=== PATIENT | female | born 1985 | race Caucasian/White ===

== ENCOUNTER 2024-09-25 05:06 | Emergency (ER) | payer OTHER, SELFPAY ==
--- OUTSIDE RECORDS SUMMARY | 2024-08-30 12:13 | XMS_ITS | Continuity of Care Document ---
Author Organization [facility] Address [address] [place] [id number] Phone Care Team Providers Care Patternator Name Role Phone Sanya WHCNCrista WHLinda PITTMANan Unavailable Unavaila ble Allergies, Adverse Reactions, Alerts Substance Reaction Status Criticality No Known Allergies Active No Inform ation Medications Medication Instructions Dosage Effective Dates (start - stop) Status Comments Depo-Provera 150 mg/mL intramuscular syringe inject 1 milliliter (150MG) by intramuscular route every 3 months 150 MG - Active iron 325 mg (65 mg iron) tablet take 1 tablet by oral route every day 325 MG - Active Problems Condition Type Effective Dates (start - stop) Clini rahul Status Comments No Known Problems Procedures Procedure Date Bitewig-single Film Intraoral-periapical 1st Film Oral Hygiene Instruction Limited Oral Eval PREV VISIT, EST, AGE 18-39 OFFICE/OUTPATIENT VISIT, EST OFFICE/OUTPATIENT VISIT, EST Depo Provera 1 Ml Condoms OFFICE/OUTPATIENT VISIT, EST OFFICE/OUTPATIENT VISIT, EST Depo Provera 1 Ml URINE TEST OFFICE/OUTPATIENT VISIT, EST OFFICE/OUTPATIENT VISIT, EST Depo Provera 1 Ml URINE TEST Condoms HIV-1 OFFICE/OUTPATIENT VISIT, EST PREV VISIT, EST, AGE 18-39 PREV VISIT, EST, AGE 18-39 Thin Prep(R) Imaging System Pap W/Reflex To HR HPV DNA ODH SPECIMEN HANDLING (GC/CHLAMYDIA) Sep URINE TEST Depo Provera 1 Ml URINE TEST OFFICE/OUTPATIENT VISIT, EST OFFICE/OUTPATIENT VISIT, EST URINE TEST Depo Provera 1 Ml NEW FP MEDICAID ODH SPECIMEN HANDLING (GC/CHLAMYDIA) Mar URINE TEST NEW OFFICE VISIT LEVEL 2 NEW OFFICE VISIT LEVEL 2 Permethrin 5% OFFICE/OUTPATIENT VISIT, NEW ROUTINE VENIPUNCTURE COUNSELING AND EDUCATION CARE COORDINATION OFFICE/OUTPATIENT VISIT, EST URINE TEST Advance Directives Directive Yes / No Effective Date File Name No Information Encounters Encounter Description Practice Location Reason(s) For Visit Diagnoses Date Provider Providers Copied on Encounter [facility], [address] [place] [address], [id number], [place] tel:[phone] [facility] No Information 5 Sanya TOYA Rodriguez. [address] [place] [address], [id number], [place]. tel:[phone] [facility], [address] [place] [address], [id number], [place] tel:[phone] [facility] ER (chief complaint) Body mass index [BMI] 26.0-26.9, adultEncounter for screening for dental disorders 4 Skyler Yen. . tel:[phone] PREV VISIT, EST, AGE 18-39 [facility], [address] [place] [address], [id number], [place] tel:[phone] [facility] annual exam (chief complaint) Encntr for curber exam (general) (routine) w/o abn findings- STD screen- STD liefstyle codeOCP initial RxBody mass index (BMI) 27.0-27.9, adult 7 [facility] Jennifer. [address], [place], [id number], [place]. tel:[phone] OFFICE/OUTPAT IENT VISIT, [facility], [address], [place], [id number], [place] tel:[phone] [facility] Depo/suppl y (chief complaint) Other specified contraceptive management 5 [facility] Jennifer. [address], [place], [id number], [place]. tel:[phone] OFFICE/OUTPAT IENT VISIT, [facility], [address], [place], [id number], [place] tel:[phone] [facility] No Information 5 [facility] Jennifer. [address], [place], [id number], [place]. tel:[phone] OFFICE/OUTPAT IENT VISIT, [facility], [address], [place], [id number], [place] tel:[phone] [facility] Restart Depo (chief complaint) Other specified contraceptive management 5 [facility] Jennifer. [address], [place], [id number], [place]. tel:[phone] OFFICE/OUTPAT IENT VISIT, [facility], [address], [place], [id number], [place] tel:[phone] [facility] restart depo (chief complaint) Other specified contraceptive management 4 [facility] Jennifer. [address], [place], [id number], [place]. tel:[phone] OFFICE/OUTPAT IENT VISIT, EST [facility], [address], [place], [id number], [place] tel:[phone] [facility] STI female (chief complaint) High-risk sexual behavior 4 Margy Harris. [address], [place], [id number], [place]. tel:[phone] PREV VISIT, EST, AGE 18-39 [facility], [address], [place], [id number], [place] tel:[phone] [facility] annual visit (chief complaint) start depo (chief complaint) Gynecological ExaminationOther specified contraceptive management 4 Sanya [facility] Jennifer. [address], [place], [id number], [place]. tel:[phone] OFFICE/OUTPAT IENT VISIT, EST [facility], [address], [place], [id number], [place] tel:[phone] [facility] supply visit/depo (chief complaint) Surveillance of other contraceptive method 3 Thor Black. [address], [place], [id number], [place]. tel:[phone] [facility], [address], [place], [id number], [place] tel:[phone] [facility] No Information 3 Thor Black. [address], [place], [id number], [place]. tel:[phone] NEW OFFICE VISIT LEVEL 2 [facility], [address], [place], [id number], [place] tel:[phone] [facility] rash (chief complaint) Scabies 2 Roshni Valdez. [address], [place], [id number], [place]. OFFICE/OUTPAT IENT VISIT, NEW [facility], [address], [place], [id number], tel:[phone] [facility] Uterine size date discrepancy, antepartum condition or complication 2 Thor Black. [address], [place], [id number], [place]. tel:[phone] OFFICE/OUTPAT IENT VISIT, EST [facility], [address], [place], [id number], [place] tel:[phone] [facility] No Information 9 Unrulyroselevi Zaman. [address], [place], [id number]. tel:[phone] Family History Family Member Type Diagnosis Age At Onset Mother Problem (finding) stroke Mother Problem (finding) Mental illness Maternal grandmother Problem (finding) stroke Father Problem (finding) alcoholism Mother Problem (finding) depression Sister Problem (finding) Alive and well Brother Problem (finding) Alive and well Sister Problem (finding) depression Problem (finding) Family history of Menta l illness Brother Problem (finding) Alive and well Mother Problem (finding) Maternal grandmother Problem (finding) hypertension Mother Problem (finding) hypertension Maternal grandmother Problem (finding) depression Maternal grandmother Problem (finding) coronary arteri osclerosis Immunizations Vaccine Date Status Comments Influenza virus vaccine, injectable, quadrivalent, split virus, preservative free, 3 years or older Fluarix, Flulaval or Fluzone Quad refused Source: New Immun ization Record Payers Payer name Insurance type Covered libertarian ID Authoriza timichael(s) D Corinn[employer]anco [employer] [facility] [id number] Medicaid Wrap - [facility] [place] [id number] [place] [employer] Medicaid [place] [id number] Medicaid Wrap - [facility] [place] [id number] Social History Type Description Quantity Date Captured Comments Alcohol Use Details Unknown Caffeine Use Details Unknown Tobacco Use Status Smoking Status No Information Sex Female Sexual Orientation Straight or heterosexual Gender Identity Female Chief Complaint And Reason For Visit No Information Reason For Referral Reason For Referral No Information Plan Of Treatment Date Type Action Status Goal H&P. Due on due Goal Influenza vaccine. Due on due Goal RLP. Due on due Goal Hepatitis C screening. Due o n due Goal Lipid panel. Due on due Goal HPV. Due on due Goal OIL EXPERT exam. Due on due Goal Tdap. Due on due Goal Unhealthy drug use screening . Due on due Goal PRAPARE ASSESSMENT. Due on due Goal Tdap Vaccine. Due on 2024 due Goal Depression screening. Due on due Goal Tdap. Due on due Goal OIL EXPERT exam. Due on due Goal HPV. Due on due Goal Tdap Vaccine. Due on 2023 due Goal Influenza vaccine. Due on due Goal Hepatitis C screening. Due o n due Goal Depression screening. Due on due Goal RLP. Due on due Goal PRAPARE ASSESSMENT. Due on due Goal H&P. Due on due Goal Hep A. Due on du e Goal Hep A. Due on du e Goal Unhealthy drug use screening . Due on due Goal Dietary management education , guidance, and counseling completed Goal RLP. Due on due Goal Tdap. Due on due Goal Influenza vaccine. Due on due Goal Tobacco cessation counseling completed Goal Dietary management education , guidance, and counseling completed Goal Tdap. Due on due Goal TD Vaccine. Due on 15 due Goal Depression screening. Due on due Goal Tdap. Due on due Goal TD Vaccine. Due on 15 due Goal Depression screening. Due on due Goal TD Vaccine. Due on 15 due Goal Depression screening. Due on due Goal Tdap. Due on due Goal H&P. Due on due Goal PAP. Due on due Goal OIL EXPERT exam. Due on due Goal TD Vaccine. Due on 14 due Goal Tobacco cessation counseling completed Goal Tobacco cessation counseling completed Referral Ordered: US preg uterus compl aft 1st tri Obstetrics/Donor Relations Officer. Appointment date/timeframe: 05/20/2011 ordered History Of Present Illness Encounter Date Complaint History Of Prese nt Illness ER annual exam Currently pregna nt: no. : 6. Parity: Term: 4. : 2. Livin. The patient states she uses condoms and Depo-Provera for control. Her menses is absent.Negative for Hormone replacement therapy. Diet healthy.The patient states her exercise level is moderate. The patient does use tobacco. Tobacco cessation has been discussed. She does not drink alcohol. Additional information: James is here for annual exam and to discuss BC options. Desires to start OCPs until she can get in for an IUD. C/O increased acne associated with Depo Provera. Denies other OIL EXPERT problems.. Depo/supply Client presents today for a Depo injection. Calcium Administered in LD. Client states she gets enough calcium in her diet. Information given on smoking cessation. Next appt 10/24/14 @1315. ALEJANDRA Redmond Restart Depo Received last De po 02/07/14. Is late for Depo by 1 day. Reports abstinence for several months. Denies any problems or concerns. --Magan Khan R.N. Functional Status Date Functional Assessmen t No Information Instructions Date Instruction Additional Infor sophie Dietary management e ducation, guidance, and counseling Related to Body mass index [BMI] 26.0-26.9, adult Giving encouragement to exercise Related to Body mass index [BMI] 26.0-26.9, adult Encouraged to start sprintec today. Take 1 pill po QD at HS. If misses a pill take it as soon as she remembers and if she misses two pills take two pills one day and two pills the next day. Encouraged condoms for back up BC and to prevent STDs. has used OCPs in the past without difficulty. Related to OCP initial Rx Encouraged monthly B SE. Recommend calcium 1000mg QD. Encouraged good dietary intake and exercise. Laboratory specimens sent to lab. Patient to call in 2 weeks if desires results. Related to Encntr for curber exam (general) (routine) w/o abn findings Cervical cultures se nt to lab. Patient to call in 1 week for results Related to - STD screen Giving encouragement to exercise Related to Body mass index (BMI) 27.0-27.9, adult Dietary management e ducation, guidance, and counseling Related to Body mass index (BMI) 27.0-27.9, adult May continue Depo Pr overa. Encouraged calcium 1000mg QD. Recommend condoms for back up BC and to prevent STDs Patient encouraged to follow up s/s with PCP Related to Other specified contraceptive management May continue Depo Pr overa. Encouraged calcium 1000mg QD. Recommend condoms for back up BC and to prevent STDs Related to Other specified contraceptive management Assessments Type Assessment Date No Information Patient Care Teams Name Effective Dates (start - stop) Status Members No Information
[2024-09-25 05:10] VITALS: PULSE 98; TEMP 36.9; O2SAT 99; BMI 23.8
--- NOTE | 2024-09-25 05:18 | PC.NURSE ---
Patient reports there may be a small camera in my vagina . Reports her boyfriend was using it last night and now can not find it.
--- OUTSIDE RECORDS SUMMARY | 2024-09-25 05:24 | XMS_ITS | Clinical Summary ---
Author Organization [facility] Address [address] [place] [address] Care Team Providers Care Evp General Counsel Name Role Phone Johana San DEBO Unavailable Social History Tobacco Use Types Packs/Day Years Used Date Smoking Tobacco: Never Assessed Comments Unknown Sex and Gender Information Value Date Recorded Sex Assigned at Not on file Legal Sex Female 6:43 PM EDT Gender Identity Not on file Sexual Orientation Not on file Plan of Treatment Health Maintenance Due Date Last Done Comments HPV/Cotest 2014 Cervical Cancer Screening 05/15/2024 Pap Smear 05/15/2024 05/15/2021 Mammogram 2024 Influenza Vaccine (#1) 2024 Procedures Procedure Name Priority Date/Time Associated Diagnosis Comments THINPREP TIS PAP AND HPV MRNA E6/E7 REFLEX HPV 16,18/45 (48702) Routine 05/15/2021 from Last 3 Months or Most Recently Relevant to Health Maintenance Results * THINPREP TIS PAP AND HPV MRNA E6/E7 REFLEX HPV 16,18/45 (51319) (05/15/2021) CLINICAL INFORMATION: [facility] LMP: None given [facility] PREV. PAP: FIRST PAP IN OFFICE [facility] PREV. BX: None given [facility] SOURCE: Cervix [facility] STATEMENT OF ADEQUACY: SEE COMMENT [facility] Comment: Satisfactory for evaluation. Endocervical/transformation zone component present. INTERPRETATION/RE SULT: Negative for intraepithelial lesion or malignancy. [facility] INFECTION: Shift in vaginal estevan suggestive of bacterial vaginosis. [facility] COMMENT: This Pap test has been evaluated with computer assisted technology. [facility] SKI TECHNICIAN: SEE COMMENT [facility] Comment: EMP, CT(ASCP) CT screening location: [employer] [facility], [address] [place] [address], [place] [address]. COMMENT SEE COMMENT [facility] Comment: EXPLANATORY NOTE: The Pap is a screening test for cervical cancer. It is not a diagnostic test and is subject to false negative and false positive results. It is most reliable when a satisfactory sample, regularly obtained, is submitted with relevant clinical findings and history, and when the Pap result is evaluated along with historic and current clinical information. HPV MRNA E6/E7 Not Detected Not Detected [facility] Comment: Methodology: Manager Of Information-Mediated Amplification This assay detects E6/E7 viral messenger RNA (mRNA) from 14 high-risk HPV types (16,18,31,33,35,39,45,51,52,56,58,59,66,68). The analytical performance characteristics of this assay have been determined by [employer]. The modifications have not been cleared or approved by the FDA. This assay has been validated pursuant to the CLIA regulations and is used for clinical purposes. For additional information, please refer to http://education.FameBit.Bizdom/faq/YAU459c5 (This link if provided for information/ educational purposes only.) NO COLLECTION DATE RECEIVED. WE HAVE USED THE DATE THE SPECIMEN WAS RECEIVED BY THIS LABORATORY THE COLLECTION DATE. IF THIS IS INCORRECT, PLEASE CONTACT CLIENT SERVICES. PHONE NUMBER: [phone] 05/15/2021 Abraham Neely DO [facility] Final Result [facility] from Last 3 Months or Most Recently Relevant to Health Maintenance Care Teams Evp General Counsel Relationship Specialty Start Date End Date Johana San NP [address] [place] [address] PCP - [facility] 06/16/23
--- OUTSIDE RECORDS SUMMARY | 2024-09-25 05:24 | XMS_ITS | Encounter Summary ---
Author Organization [facility] Address [address] [facility] [place] [address] Phone Care Team Providers Care Student Finance Advisor Name Role Phone Unavailable Primary Care Provider Unavailabl e Encounter Details Date Type Department Care Team (Late st Contact Info) Description 10/17/2022 Patient Risk Score ACO Care Management [address] [place] [address] Social History Tobacco Use Types Packs/Day Years Used Date Smoking Tobacco: Never Assessed Comments Unknown Sex and Gender Information Value Date Recorded Sex Assigned at Not on file Legal Sex Female 8:53 AM EST Gender Identity Not on file Sexual Orientation Not on file documented as of this encounter Plan of Treatment Not on file documented as of this encounter Visit Diagnoses Not on filedocumented in this encounter
--- OUTSIDE RECORDS SUMMARY | 2024-09-25 05:24 | XMS_ITS | Encounter Summary ---
Author Organization [facility] Address [address] [facility] [place] [address] Phone Care Team Providers Care Patient Safety Manager Name Role Phone Unavailable Primary Care Provider Unavailabl e Encounter Details Date Type Department Care Team (Late st Contact Info) Description 11/17/2022 Patient Risk Score ACO Care Management [address] [place] [address] Social History Tobacco Use Types [...]
--- OUTSIDE RECORDS SUMMARY | 2024-09-25 05:24 | XMS_ITS | Clinical Summary ---
Author Organization [facility] Address [id number] [address] [place] [address] Care Team Providers Care Leaflet Or Newspaper Deliverer Name Role Phone Unavailable Primary Care Provider Unavailabl e Allergies No known active allergies Medications methadone (DOLOPHINE) 10 mg/5 mL solution Take 90 mg by mouth every 6 (six) hours as needed for pain. Active QUEtiapine (SEROquel) 25 mg tablet Take 25 mg by mouth nightly. Active Active Problems Problem Noted Date Diagnosed Date Major depressive disorder, recurrent episode, se triston 12/02/2013 Opiate dependence 11/11/2013 Immunizations No known immunizations Social History Tobacco Use Types Packs/Day Years Used Date Smoking Tobacco: Every Day Cigarettes Smokeless Tobacco: Never Alcohol Use Standard Drinks/Week Comments Not Currently 0 (1 standard drink = 0.6 oz pur e alcohol) once a year Childcare Answer Date Recorded Childcare Unknown 01/26/2020 Employment Answer Date Recorded Employment Unknown 01/26/2020 Purpose - Life Answer Date Recorded Purpose and direction in life Unknown Comments Unknown Sex and Gender Information Value Date Recorded Sex Assigned at Not on file Legal Sex Female 1:54 PM EST Gender Identity Not on file Sexual Orientation Not on file Last Filed Vital Signs Vital Sign Reading Time Taken Comments Blood Pressure 102/58 02/17/2020 3:02 PM EST Pulse - - Temperature - - Respiratory Rate - - Oxygen Saturation - - Inhaled Oxygen Concentration - - Weight 67.1 kg (148 lb) 02/17/2020 3:02 PM EST Height - - Body Mass Index - - Plan of Treatment Health Maintenance Due Date Last Done Comments Depression Screening 1996 Tobacco Screening 1996 Adult BMI Screening 2002 DTaP,Tdap and Td Vaccines (1 - Tdap) 06/11/2003 Pap Smear 01/26/2023 01/27/2020, 01/27/2020 Influenza Vaccine 11/15/2024 Medical Devices Not on file Procedures Procedure Name Priority Date/Time Associated Diagnosis Comments HIGH RISK HPV W/DANIEL Routine 01/27/2020 12:48 PM EST from Last 3 Months or Most Recently Relevant to Health Maintenance Results * High risk HPV w/daniel (01/27/2020 12:48 PM EST) Hpv specimen type ThinPrep 01/28/2020 12:48 PM EST [facility] Hpv 16 Negative Negative^N egative 01/31/2020 2:[address] [facility] Hpv 18 Negative Negative^N egative 01/31/2020 2:[address] [facility] Other high risk hpv Negative Negative^N egative 01/31/2020 2:[address] [facility] Comment: HPV types 31,33,35,39,45,52,56,58,59,66 and 68 DNA were undetectable. Serum / Unknown 01/27/2020 1 2:48 PM EST 01/28/2020 12:48 PM EST Kathy Ramirez WAGE AND HOUR INVESTIGATOR-[facility] LAB BLOOD ORDERABLES F inal Result [facility] [address], [address] [place] [address] from Last 3 Months or Most Recently Relevant to Health Maintenance Insurance [employer]
--- OUTSIDE RECORDS SUMMARY | 2024-09-25 05:24 | XMS_ITS | Clinical Summary ---
Author Organization [facility] Address [address] [place] [address] Phone Care Team Providers Care Nurses' Aide Name Role Phone Unavailable Primary Care Provider Unavailabl e Social History Tobacco Use Types Packs/Day Years Used Date Smoking Tobacco: Never Assessed Comments Unknown Sex and Gender Information Value Date Recorded Sex Assigned at Not on file Legal Sex Female 8:53 AM EST Gender Identity Not on file Sexual Orientation Not on file Plan of Treatment Health Maintenance Due Date Last Done Comments HIV Screening 1984 Lipid Panel 1984 Yearly Adult Physical 1984 MMR Vaccines (1 of 1 - Stand jeannine series) 1985 Varicella Vaccines (1 of 2 - 13+ 2-dose series) 1997 Hepatitis C Screening 2002 Hepatitis B Vaccines (1 of 3 - 19+ 3-dose series) 06/11/2003 Cervical Cancer Screening 2005 HPV/Cotest 2005 Pap Smear 2005 DTaP/Tdap/Td Vaccines (1 - Tdap) 2006 COVID-19 Vaccine (1 - 2023-2 5 season) 2023 Mammogram 2024 Influenza Vaccine (#1) 2024 Zoster Vaccines (1 of 2) 2034 HIB Vaccines Aged Out No longer eligi ble based on patient's age to complete this topic HPV Vaccines (No Doses Required) Completed Hepatitis A Vaccines Aged Out No long er eligible based on patient's age to complete this topic IPV Vaccines Aged Out No longer eligi ble based on patient's age to complete this topic Meningococcal Vaccine Aged Out No josiah lewis eligible based on patient's age to complete this topic Pneumococcal Vaccine: Pediat rics and At-Risk Adult Patients Aged Out No longer loren gible based on patient's age to complete this topic Rotavirus Vaccines Aged Out No longer eligible based on patient's age to complete this topic
--- OUTSIDE RECORDS SUMMARY | 2024-09-25 05:24 | XMS_ITS | Encounter Summary ---
Author Organization [facility] Address [address] [facility] [place] [address] Phone Care Team Providers Care Machine Welder Name Role Phone Unavailable Primary Care Provider Unavailabl e Encounter Details Date Type Department Care Team (Late st Contact Info) Description 09/16/2022 Patient Risk Score ACO Care Management [address] [place] [address] Social History Tobacco Use Types [...]
--- NOTE | 2024-09-25 05:25 | XR_ITS ---
The [address] [address] Patient Name: INGRID KATE MRN: [id number] date: 1985 Sex: F Assigned Patient Location: ED.MAIN Current Patient Location: Accession/Order Number: [id number] Exam Date: 09/25/2024 08:52 Report Date: 09/25/2024 08:54 At the request of: FROILAN MARIA DO Procedure: XR pelvis 1-2V XR pelvis 1-2V 09/25/2024 5:36 AM SIGNS AND SYMPTOMS: Rule out foreign body PROTOCOL: Frontal radiograph the pelvis COMPARISON: None FINDINGS: No abnormal radiopaque foreign body. There is stool throughout the colon and rectum. Vascular calcifications are present in the pelvis. The bony structures are intact. XR/XR pelvis 1-2V IMPRESSION: No abnormal radiopaque foreign body. Impression dictated by: Aman Linn M.D. 09/25/2024 8:54 AM Dictation Location: [place] [address] Electronically authenticated by: [id number] Date: 09/25/2024 08:54
[2024-09-25 05:36] VITALS: BP 148/82
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
== END 2024-09-25 06:16 | disposition home or self-care (01) ==
PROVIDERS: Emergency Provider Emergency Medicine
DX: Z03.823 Encounter for observation for suspected inserted (injected) foreign body ruled out (principal)
CPT/HCPCS: 72170; 99283